=== PATIENT | female | born 1950 | race Two or more races ===

== ENCOUNTER 2018-11-14 11:39 | Emergency (ER) | payer OTHER ==
[~2018-11-14] VITALS: Ht 165.1 cm; Wt 104.3 kg
[2018-11-14] MEDS ORDERED: SODIUM CHLORIDE 0.9% 1,000 ML IV ONE (12:24)
[2018-11-14] MEDS ORDERED: HYDROmorphone HCL 2 MG/ML VL IV ONE (12:30)
[2018-11-14] MEDS ORDERED: METOCLOPRAMIDE HCL 5MG/ml INJ 2ml VIAL IV ONE (12:30)
[2018-11-14 12:55] LABS: Basophils # (auto) 0 uL; Basophils % (auto) 0.5 % (0.0-2.0); Eosinophils # (auto) 0.2 uL; Eosinophils % (auto) 2.4 % (0.0-7.0); Hematocrit 38.1 % (36.0-46.0); Hemoglobin 13.4 g/dL (12.2-16.2); Lymphocytes # (auto) 1.2 uL; Lymphocytes % (auto) 17.9 % (10.0-50.0); Mean Corpuscular Hemoglobin 31.5 pg (28.0-32.0); Mean Corpuscular Hgb Conc. 35.3 g/dL (32.0-36.0); Mean Corpuscular Volume 89.3 fL (80.0-100.0); Monocytes # (auto) 0.3 uL; Monocytes % (auto) 4.8 % (0.0-12.0); Neutrophils # (auto) 4.8 uL; Neutrophils % (auto) 74.4 % (37.0-80.0); Nucleated Red Blood Cells % 0.1 %; Platelet Count (auto) 218 10^3/uL (140-450); Red Blood Cells 4.26 10^6/uL (4.0-5.20); Red Cell Distribution Width 13.3 % (11.8-14.3); White Blood Cell 6.5 10^3/uL (4.4-10.8)
[2018-11-14 13:09] LABS: Albumin 3.3 g/dL (3.4-5.0); BUN/Creatinine Ratio 18.9; Calcium 8.8 mg/dL (8.5-10.1); Magnesium 2.3 mg/dL (1.6-2.6); Potassium 4.1 mmol/L (3.5-5.1)
[2018-11-14 13:12] LABS: Bilirubin, Total 0.4 mg/dL (0.2-1.0); Total Protein 7.5 g/dL (6.4-8.2)
[2018-11-14 13:17] LABS: INR 0.94 (0.9-1.15); Partial Thromboplastin Time 31.1 sec (23.64-32.05)
[2018-11-14 18:51] VITALS: BP 189/95
== END 2018-11-14 19:31 | disposition short-term general hospital (02) ==
LOC: EDUNIT# 11:39 → EDBD 11:39 → ER 11:42
DX: S72.002A Fracture of unspecified part of neck of left femur, initial encounter for closed fracture (principal); E11.9 Type 2 diabetes mellitus without complications; I10 Essential (primary) hypertension; M16.0 Bilateral primary osteoarthritis of hip; E44.1 Mild protein-calorie malnutrition; Z68.38 Body mass index [BMI] 38.0-38.9, adult; W01.0XXA Fall on same level from slipping, tripping and stumbling without subsequent striking against object, initial encounter; Y93.01 Activity, walking, marching and hiking; Y92.89 Other specified places as the place of occurrence of the external cause; Y99.8 Other external cause status
CPT/HCPCS: 36415; 51702; 71045; 73502; 80053; 83735; 85025; 85610; 85730; 93005; 96374; 96375; 99285; J1170; J2765; J7030